=== PATIENT | female | born 1975 | race Caucasian/White ===

== ENCOUNTER 2016-07-18 12:54 | Emergency (ER) | payer OTHER ==
[~2016-07-18] VITALS: Ht 160 cm; Wt 86.5 kg
[~2016-07-18 12:54] MED LIST: ALDOMET250 MG PO; ALDOMET500 MG PO; BENICAR40 MG PO; BRINTELLIX20 MG PO; BUTALB-APAP-CA1 EACH PO; CALCIUM 500 MG1 EAC1 PO; DAILY MULTIPLE1 EACH PO; DIVALPROEX SOD250 MG PO; Dulcolax PR; ENDOCET 5-3251 EACH PO; FERROUS SULFAT325 MG PO; FETZIMA120 MG PO; Feosol PO; Fioricet,Esgic,Repan PO; Folvite PO; INDERAL LA120 MG PO; INDERAL LA160 MG PO; IRON325 M1 PO; LORCET 5-325 M1 EACH PO; LOSARTAN POTAS100 MG PO; METHYLDOPA500 MG PO; Motrin PO; NATALCARE RX1 TABLET PO; NEXIUM40 MG PO; Normodyne,Trandate PO; PROTONIX40 MG PO; Percocet 5/325,Endoc PO; PriLOSEC PO; Protonix PO; SUCRALFATE1 GM/10 ML PO; TORADOL; TRANDATE100 MG PO; TRI-PREVIFEM1 EACH PO; VICODIN 5-3001 EACH PO; VICODIN,LORT1 TABLET PO; VITAMIN B-122000 MC1 PO; VITAMIN B-12500 MC5 SL; VITAMIN B12-FO1 EACH PO; VITAMIN D2000 UNI1 PO; Vicodin,Norco 5/325 PO; Vitamin B-12 PO; WELLBUTRIN XL300 MG PO; ZIPRASIDONE HCL20 MG PO; ZOFRAN ODT4 MG PO; ZONEGRAN50 MG PO; ZONISAMIDE25 MG PO; ~No Medications
[2016-07-18 13:25] LABS: HEMATOCRIT 34.7 % (36.0-46.0); MCH 24.5 PG (29.0-34.0); MCHC 30.8 G/DL (30.0-36.0); MCV 79.6 FL (83-99); MEAN PLAT.VOLUME 9.7 uM^3 (9.5-12.4); PLATELET COUNT 333 K/uL (156-360); RBC DIS.WIDTH-CV 17.1 % (11.8-14.6); RBC DIS.WIDTH-SD 48.8 % (39-53); RED BLOOD COUNT 4.36 M/uL (3.80-5.20); WHITE BLOOD COUNT 8.5 K/uL (4.1-10.2)
[2016-07-18 13:52] LABS: QUANTITATIVE HCG < 4.0 MIU/ML
[2016-07-18 14:13] LABS: CHLORIDE 102 mEq/L (99-109); POTASSIUM 3.8 mEq/L (3.7-5.4); SODIUM 136 mEq/L (136-147)
[2016-07-18 14:15] LABS: GLUCOSE 112 mg/dL (70-99)
[2016-07-18 14:16] LABS: ANION GAP 10 MEQ/L (2-14)
[2016-07-18 14:17] LABS: TOTAL BILIRUBIN < 0.1 mg/dL (0.0-1.0)
[2016-07-18 14:18] LABS: ALKALINE PHOSPHATASE 109 IU/L (3-129)
[2016-07-18 14:19] LABS: GFR ESTIMATE (CALCULATED) 58 mL/min/
[2016-07-18 14:20] LABS: UREA NITROGEN (BUN) 16 mg/dL (9-23)
[2016-07-18 14:22] LABS: LIPASE 31 U/L (1.0-51.0)
[2016-07-18 18:55] LABS: ADD MIUA? YES; BILIRUBIN NEGATIVE; BLOOD SMALL; COLOR YELLOW ((YELLOW)); GLUCOSE (STRIP) NEGATIVE; KETONES NEGATIVE; LEUKOCYTES LARGE; NITRITE POSITIVE; PROTEIN (STRIP) NEGATIVE; SPECIFIC GRAVITY 1.035 (1.000-1.030); UROBILINOGEN 0.2 MG/DL (0.2-1.0)
[2016-07-18 19:23] LABS: BACTERIA RARE /HPF; EPITHELIAL CELLS 1+ /HPF; HYALINE CASTS 0-5 /LPF; MUCUS TRACE /LPF; UCUL ADDED? YES; WHITE BLOOD CELLS TNTC /HPF (0-5)
[2016-07-18] MEDS ORDERED: KEFLEX500 MG PO (21:12)
[2016-07-18] MEDS ORDERED: ZANTAC300 MG PO (21:12)
[2016-07-18] MEDS ORDERED: CARAFATE100 MG/ML PO (21:25)
[2016-07-18 22:08] VITALS: BP 124/63
[2016-07-25 13:03] LABS: POC NON-PRINT COM 1 ND
== END 2016-07-18 22:13 | disposition home or self-care (01) ==
LOC: EME 12:54
PROVIDERS: Physician Assistant
DX: R10.10 Upper abdominal pain, unspecified (principal); K20.9 Esophagitis, unspecified; N39.0 Urinary tract infection, site not specified; N28.89 Other specified disorders of kidney and ureter; N20.0 Calculus of kidney; R42 Dizziness and giddiness; D64.9 Anemia, unspecified; I10 Essential (primary) hypertension; Z90.49 Acquired absence of other specified parts of digestive tract; Z90.710 Acquired absence of both cervix and uterus; Z98.84 Bariatric surgery status; Z87.442 Personal history of urinary calculi; Z87.891 Personal history of nicotine dependence
CPT/HCPCS: 74177; 80053; 81003; 82272; 83605; 83690; 84702; 85027; 87077; 87086; 87186; 93005; 99281; 99284; C9113; J0696; J3010; J7030; J7050

== ENCOUNTER 2016-09-09 09:37 | Day surgery (SDC) | payer OTHER ==
[~2016-09-09] VITALS: Ht 160 cm; Wt 90.3 kg
[~2016-09-09 09:37] MED LIST changes: +ATENOLOL50 MG PO; +BENICAR HCT 401 EAC1 PO; +CARAFATE100 MG/ML PO; +CLONIDINE HCL0.1 MG PO; +KEFLEX500 MG PO; +METHYLPHENIDATE20 M1 PO; +ZANTAC300 MG PO
[2016-09-09 10:21] VITALS: BP 113/58
[2016-09-09] MEDS ORDERED: NORCO 5/3251 TABLET PO (12:19)
[2016-09-09 13:34] VITALS: BP 105/63
[2016-09-09 14:31] VITALS: BP 110/57
== END 2016-09-09 14:56 | disposition home or self-care (01) ==
LOC: SDC 09:37
PROC: 0WUF0JZ Supplement Abdominal Wall with Synthetic Substitute, Open Approach (ICD-10-PCS; principal; 2016-09-09)
DX: K43.2 Incisional hernia without obstruction or gangrene (principal); I10 Essential (primary) hypertension; F41.8 Other specified anxiety disorders; R00.1 Bradycardia, unspecified; K21.9 Gastro-esophageal reflux disease without esophagitis; Z98.84 Bariatric surgery status; E66.9 Obesity, unspecified; Z68.34 Body mass index [BMI] 34.0-34.9, adult; Z87.891 Personal history of nicotine dependence; Z82.49 Family history of ischemic heart disease and other diseases of the circulatory system; Z83.3 Family history of diabetes mellitus
CPT/HCPCS: C1781; J0131; J0690; J1170; J2250; J2405; J2765; J3010; S0020

== ENCOUNTER 2016-12-26 15:54 | Observation (INO) | payer OTHER ==
[~2016-12-26] VITALS: Ht 160 cm; Wt 83.1 kg
[~2016-12-26 15:54] MED LIST changes: +NORCO 5/3251 TABLET PO
[2016-12-26 17:09] LABS: EOSINOPHIL COUNT 0.2 K/uL (0-0.3); HEMATOCRIT 33.6 % (36.0-46.0); IMMATURE GRANULOCYTE (%) 0.3 % (0.0-0.7); INSTRUMENT ABS NEUTROPHIL CT 6.1 K/uL; LYMPHOCYTE COUNT 1.8 K/uL (1.0-2.8); MCH 26.9 PG (29.0-34.0); MCHC 32.4 G/DL (30.0-36.0); MEAN PLAT.VOLUME 10.7 uM^3 (9.5-12.4); MONOCYTE (%) 5.7 % (3-12); MONOCYTE COUNT 0.5 K/uL (0-0.8); NEUTROPHIL (%) 70.5 % (45-76); NEUTROPHIL COUNT 6.1 K/uL (1.8-6.4); PLATELET COUNT 304 K/uL (156-360); RBC DIS.WIDTH-CV 13.9 % (11.8-14.6); RBC DIS.WIDTH-SD 41.7 % (39-53); RED BLOOD COUNT 4.05 M/uL (3.80-5.20); WHITE BLOOD COUNT 8.7 K/uL (4.1-10.2)
[2016-12-26 17:20] LABS: CHLORIDE 107 mEq/L (99-109); POTASSIUM 3.6 mEq/L (3.7-5.4); SODIUM 139 mEq/L (136-147)
[2016-12-26 17:21] LABS: GLUCOSE 85 mg/dL (70-99)
[2016-12-26 17:23] LABS: ANION GAP 11 MEQ/L (2-14)
[2016-12-26 17:25] LABS: GFR ESTIMATE (CALCULATED) > 59 mL/min/
[2016-12-26 17:26] LABS: UREA NITROGEN (BUN) 12 mg/dL (9-23)
[2016-12-26] MEDS ORDERED: FIORICET 50-301 EAC1 PO (23:43)
[2016-12-27 00:13] LABS: APPEARANCE CLEAR/COLORLESS; RED CELL AREA COUNTED 0.4; RED CELL COUNT 1475 /MM^3 (0-1); RED CELL DILUTION 1; WBC AREA COUNTED 0.4; WBC DILUTION 1; WHITE CELL COUNT 0 /MM^3 (0-5); WHITE CELL RAW COUNT 0
[2016-12-27 00:14] LABS: SPINAL FLD COMMENT NO WBC'S SEEN.
[2016-12-27 00:16] LABS: POLYNUCLEAR WBC'S ND % (0-3)
[2016-12-27 00:17] LABS: CSF EOSINOPHILS ND % (0-25); MONONUCLEAR WBC'S ND % (50-90)
[2016-12-27 00:26] LABS: APPEARANCE (RECHECK) CLEAR/COLORLESS; CSF TUBE NUMBER (RECHECK) TUBE #1; RED CELL AREA COUNTED 0.4; RED CELL COUNT (RECHECK) 1575 /MM^3 (0-1); RED CELL DILUTION 1; SPINAL FLD COMMENT NO WBC'S SEEN.
[2016-12-27] MEDS ORDERED: AMLODIPINE BESY10 MG PO (03:42)
[2016-12-27] MEDS ORDERED: FETZIMA40 MG PO (03:43)
[2016-12-27] MEDS ORDERED: LORAZEPAM1 MG PO (03:43)
[2016-12-27 04:35] VITALS: BP 176/94
[2016-12-27 06:06] VITALS: BP 145/81
[2016-12-27 07:37] VITALS: BP 124/80
[2016-12-27 09:47] LABS: ADD MIUA? YES; BILIRUBIN NEGATIVE; BLOOD SMALL; COLOR YELLOW ((YELLOW)); GLUCOSE (STRIP) NEGATIVE; KETONES NEGATIVE; LEUKOCYTES SMALL; NITRITE NEGATIVE; PROTEIN (STRIP) NEGATIVE; SPECIFIC GRAVITY 1.027 (1.000-1.030); UROBILINOGEN 0.2 MG/DL (0.2-1.0)
[2016-12-27 10:20] LABS: BACTERIA 2+ /HPF; EPITHELIAL CELLS RARE /HPF; MUCUS 1+ /LPF; RED BLOOD CELLS 0-5 /HPF (0-5); UCUL ADDED? YES; WHITE BLOOD CELLS 0-5 /HPF (0-5)
[2016-12-27 11:35] VITALS: BP 154/81
[2016-12-27] MEDS ORDERED: VITAMIN D31000 UNI2 PO (12:41)
[2016-12-27] MEDS ORDERED: VITAMIN B122500 MCG PO (12:41)
[2016-12-27] MEDS ORDERED: TRAZODONE HCL50 MG PO (12:42)
[2016-12-27] MEDS ORDERED: ALLEGRA ALLERG180 MG PO (12:42)
[2016-12-27 15:53] VITALS: BP 94/51
[2016-12-27 16:27] LABS: TROP-I INTERPRETATION NEGATIVE; TROPONIN-I 0.03 ng/mL (0.0-0.30)
[2016-12-27 17:22] LABS: POTASSIUM 3.7 MEQ/L (3.7-5.4)
[2016-12-27 19:00] VITALS: BP 126/72
[2016-12-27 21:07] LABS: TROP-I INTERPRETATION NEGATIVE; TROPONIN-I 0.03 ng/mL (0.0-0.30)
[2016-12-28 00:44] VITALS: BP 115/61
[2016-12-28 04:48] VITALS: BP 110/68
[2016-12-28 07:22] VITALS: BP 122/62
[2016-12-28 12:19] VITALS: BP 134/79
[2016-12-28] MEDS ORDERED: APRESOLINE25 MG PO (14:51)
[2016-12-28] MEDS ORDERED: ENDOCET 5-3251 EACH PO (14:51)
== END 2016-12-28 15:33 | disposition home or self-care (01) ==
LOC: EME 15:54 → EDOF 12-27 03:14 → 5WEST 12-27 03:14 → EDOF 12-27 03:14 → ENRESERV 12-27 03:18 → 5WEST 12-27 04:27
PROVIDERS: Emergency Medicine; Hospitalist; Internal Medicine
PROC: 009U3ZX Drainage of Spinal Canal, Percutaneous Approach, Diagnostic (ICD-10-PCS; principal; 2016-12-27)
DX: R51 Headache (principal); I67.4 Hypertensive encephalopathy; R94.31 Abnormal electrocardiogram [ECG] [EKG]; R11.0 Nausea; I10 Essential (primary) hypertension; I27.20 Pulmonary hypertension, unspecified; Z87.11 Personal history of peptic ulcer disease; D64.9 Anemia, unspecified; Z98.84 Bariatric surgery status; E66.9 Obesity, unspecified; Z68.32 Body mass index [BMI] 32.0-32.9, adult; Z86.69 Personal history of other diseases of the nervous system and sense organs; Z87.891 Personal history of nicotine dependence; M79.7 Fibromyalgia; Z83.3 Family history of diabetes mellitus; Z82.49 Family history of ischemic heart disease and other diseases of the circulatory system
CPT/HCPCS: 70450; 70496; 70498; 76770; 77002; 77003; 80048; 81003; 82945; 83735; 84132; 84157; 84484; 85025; 87070; 87077; 87086; 87186; 87205; 89051; 93005; 93306; 93975; 99281; 99285; G0378; J0360; J1200; J1885; J2270; J2405; J2765; J3010; J3030; J7030

== ENCOUNTER 2017-01-25 09:15 | Inpatient (IN) | payer OTHER ==
[~2017-01-25] VITALS: Ht 167.6 cm; Wt 82.2 kg
[~2017-01-25 09:15] MED LIST changes: +ALLEGRA ALLERG180 MG PO; +AMLODIPINE BESY10 MG PO; +APRESOLINE25 MG PO; +FETZIMA40 MG PO; +FIORICET 50-301 EAC1 PO; +LORAZEPAM1 MG PO; +TRAZODONE HCL50 MG PO; +VITAMIN B122500 MCG PO; +VITAMIN D31000 UNI2 PO
[2017-01-25 10:33] LABS: EOSINOPHIL (%) 2.4 % (0-5); EOSINOPHIL COUNT 0.1 K/uL (0-0.3); HEMATOCRIT 36.3 % (36.0-46.0); IMMATURE GRANULOCYTE (%) 0.8 % (0.0-0.7); LYMPHOCYTE COUNT 1.8 K/uL (1.0-2.8); MCH 26.8 PG (29.0-34.0); MCHC 32.5 G/DL (30.0-36.0); MCV 82.3 FL (83-99); MONOCYTE (%) 5.6 % (3-12); MONOCYTE COUNT 0.3 K/uL (0-0.8); NEUTROPHIL (%) 56.3 % (45-76); PLATELET COUNT 267 K/uL (156-360); RBC DIS.WIDTH-CV 15.1 % (11.8-14.6); RBC DIS.WIDTH-SD 45.3 % (39-53); RED BLOOD COUNT 4.41 M/uL (3.80-5.20); WHITE BLOOD COUNT 5.3 K/uL (4.1-10.2)
[2017-01-25 10:38] LABS: PROTHROMBIN TIME 11.7 SEC (10.2-12.9)
[2017-01-25 10:46] LABS: CHLORIDE 110 mEq/L (99-109); POTASSIUM 3.7 mEq/L (3.7-5.4); SODIUM 142 mEq/L (136-147)
[2017-01-25 10:48] LABS: GLUCOSE 100 mg/dL (70-99)
[2017-01-25 10:49] LABS: ANION GAP 10 MEQ/L (2-14)
[2017-01-25 10:51] LABS: GFR ESTIMATE (CALCULATED) > 59 mL/min/
[2017-01-25 10:52] LABS: UREA NITROGEN (BUN) 11 mg/dL (9-23)
[2017-01-25 10:58] LABS: TROP-I INTERPRETATION NEGATIVE; TROPONIN-I 0.01 ng/mL (0.0-0.30)
[2017-01-25 11:06] LABS: ADD MIUA? YES; BILIRUBIN NEGATIVE; BLOOD SMALL; COLOR STRAW ((YELLOW)); GLUCOSE (STRIP) NEGATIVE; KETONES NEGATIVE; LEUKOCYTES TRACE; NITRITE NEGATIVE; PROTEIN (STRIP) NEGATIVE; SPECIFIC GRAVITY 1.004 (1.000-1.030); UROBILINOGEN 0.2 MG/DL (0.2-1.0)
[2017-01-25 11:13] LABS: BACTERIA RARE /HPF; EPITHELIAL CELLS RARE /HPF; MUCUS TRACE /LPF; RED BLOOD CELLS 0-5 /HPF (0-5); UCUL ADDED? YES
[2017-01-25] MEDS ORDERED: BUTALB-ACETAMI1 EAC2 PO (14:29)
[2017-01-25] MEDS ORDERED: CLONIDINE HCL0.1 MG PO (14:32)
[2017-01-25] MEDS ORDERED: HYDRALAZINE HCL50 MG PO (14:33)
[2017-01-25 14:48] LABS: HDL CHOLESTEROL 56 MG/DL (Desirable>=50); LDL CHOLESTEROL 55 mg/dL (Desirable<100); NON-HDL CHOLESTEROL 93 mg/dL (Desirable<160); TOTAL CHOLESTEROL 149 mg/dL (Desirable<200); TRIGLYCERIDES 188 MG/DL (Normal: <150)
[2017-01-25 15:11] LABS: Estimated Average Glucose 114 mg/dL (70-123); HEMOGLOBIN A1c (GLYCOHEMOGLOB) 5.6 % HGB (Below 5.7)
[2017-01-25 15:43] VITALS: BP 151/86
[2017-01-25 19:17] VITALS: BP 130/70
[2017-01-25 19:17] LABS: TROP-I INTERPRETATION NEGATIVE; TROPONIN-I 0.02 ng/mL (0.0-0.30)
[2017-01-25 23:45] VITALS: BP 108/68
[2017-01-26] VITALS (8 sets, daily range): BP systolic 88–126; BP diastolic 53–73
[2017-01-26 04:08] LABS: TROP-I INTERPRETATION NEGATIVE; TROPONIN-I < 0.01 ng/mL (0.0-0.30)
[2017-01-26] MEDS ORDERED: AMITRIPTYLINE H10 MG PO (11:23)
[2017-01-27] VITALS: BP 113/62
[2017-01-27 03:40] VITALS: BP 118/71
[2017-01-27 07:44] VITALS: BP 115/56
[2017-01-27] MEDS ORDERED: TIZANIDINE HCL2 MG PO (11:22)
[2017-01-27] MEDS ORDERED: CEFTIN500 MG PO (11:52)
== END 2017-01-27 11:44 | disposition home or self-care (01) | DRG 103 ==
LOC: EME 09:15 → EDOF 13:38 → 5SOUTH 13:38 → ENRESERV 13:42 → 5SOUTH 15:27
PROVIDERS: Emergency Medicine; Internal Medicine
DX: G43.509 Persistent migraine aura without cerebral infarction, not intractable, without status migrainosus (principal); N39.0 Urinary tract infection, site not specified; F33.9 Major depressive disorder, recurrent, unspecified; B96.20 Unspecified Escherichia coli [E. coli] as the cause of diseases classified elsewhere; R27.0 Ataxia, unspecified; F41.9 Anxiety disorder, unspecified; F98.5 Adult onset fluency disorder; I10 Essential (primary) hypertension; K21.9 Gastro-esophageal reflux disease without esophagitis; G40.909 Epilepsy, unspecified, not intractable, without status epilepticus; M79.7 Fibromyalgia; Z98.84 Bariatric surgery status; Z87.891 Personal history of nicotine dependence; Z87.442 Personal history of urinary calculi; Z87.11 Personal history of peptic ulcer disease; Z83.3 Family history of diabetes mellitus; Z82.49 Family history of ischemic heart disease and other diseases of the circulatory system; Z88.1 Allergy status to other antibiotic agents
CPT/HCPCS: 70450; 70496; 70498; 70549; 70551; 71020; 80048; 80061; 81003; 83036; 84484; 85025; 85610; 85651; 87077; 87086; 87186; 90686; 93005; 99281; 99285; J0780; J1170; J1650; J2405; J2765; J7040